=== PATIENT | female | born 1935 | race Caucasian/White ===

== ENCOUNTER → 2017-03-07 | Outpatient (CLI) | payer MEDICARE, BC | END | disposition home or self-care (01) | LOC: SUSANVILLE 11:00 | PROVIDERS: ATTEND Internal Medicine Cardiovascular Disease | DX: I08.3 Combined rheumatic disorders of mitral, aortic and tricuspid valves (principal); I51.7 Cardiomegaly; I37.1 Nonrheumatic pulmonary valve insufficiency | CPT/HCPCS: 93306 ==

== ENCOUNTER → 2017-03-17 | Outpatient (CLI) | payer MEDICARE, BC ==
[~2017-03-17] MED LIST: REGADENOSON 0.4 MG/5 ML SYRINGE ONE
== END | disposition home or self-care (01) ==
LOC: CFH 11:48
PROVIDERS: ATTEND Internal Medicine Cardiovascular Disease
DX: Z01.810 Encounter for preprocedural cardiovascular examination (principal); I10 Essential (primary) hypertension; I48.91 Unspecified atrial fibrillation
CPT/HCPCS: 78452; 93017; A9502; J2785

== ENCOUNTER → 2017-06-21 | Outpatient (CLI) | payer MEDICARE, BC | END | disposition home or self-care (01) | LOC: CFH 11:10 | PROVIDERS: ATTEND Nurse Practitioner Family | DX: I48.2 Chronic atrial fibrillation (principal); Z79.01 Long term (current) use of anticoagulants | CPT/HCPCS: 36415; 85610; 85730 ==

== ENCOUNTER 2017-07-13 08:54 | Day surgery (SDC) | payer MEDICARE, BC ==
[~2017-07-13] VITALS: Ht 152.4 cm; Wt 63.6 kg
[2017-07-13] MEDS ORDERED: SODIUM CHLORIDE 0.9% 1,000 ML IV SCH (09:28)
[2017-07-13] MEDS ORDERED: BISACODYL 5 MG EC TABLET PO PRN (09:30)
[2017-07-13] MEDS ORDERED: ACETAMINOPHEN 325 MG TABLET PO PRN (09:30)
[2017-07-13] MEDS ORDERED: ASPIRIN 325 MG TABLET EC PO ONE (09:30)
[2017-07-13] MEDS ORDERED: ONDANSETRON 2MG/ML, 2ML IVPush PRN (09:30)
[2017-07-13] MEDS ORDERED: ZOLPIDEM 5MG TABLET PO PRN (09:30)
[2017-07-13] MEDS ORDERED: BISACODYL 10 MG SUPP PR PRN (09:30)
[2017-07-13 09:31] VITALS: BP 163/75
[2017-07-13] MEDS ORDERED: TRAM50TA2 PO (09:32)
[2017-07-13] MEDS ORDERED: WARF4TAB7 PO (09:33)
[2017-07-13] MEDS ORDERED: HYDR25TA6 PO (09:34)
[2017-07-13] MEDS ORDERED: METO-95 PO (09:34)
[2017-07-13] MEDS ORDERED: ATOR40TA78 PO (09:34)
[2017-07-13] MEDS ORDERED: calcium (09:37)
[2017-07-13] MEDS ORDERED: MULT-717 PO (09:38)
[2017-07-13] MEDS ORDERED: ASCO100019 PO (09:38)
[2017-07-13] MEDS ORDERED: ACET325T14 PO (09:39)
[2017-07-13 09:42] LABS: HEMATOCRIT 36.8 % (34.6-47.8); HEMOGLOBIN 12.3 g/dL (11.7-16.4)
[2017-07-13] MEDS ORDERED: PLEASE ENTER HEIGHT AND WEIGHT MC SCH (10:00)
[2017-07-13] MEDS ORDERED: ASPIRIN 325 MG TABLET EC ONE (10:04)
[2017-07-13] MEDS ORDERED: FENTANYL PF 100 MCG/2ML ONE (11:39)
[2017-07-13] MEDS ORDERED: MIDAZOLAM 1 MG/ML, 5ML ONE (11:40)
[2017-07-13] MEDS ORDERED: LIDOCAINE 2%, 20ML ONE (11:40)
== END 2017-07-13 15:27 ==
LOC: CACL 08:54
PROVIDERS: ATTEND Internal Medicine Cardiovascular Disease
DX: I08.0 Rheumatic disorders of both mitral and aortic valves (principal); I25.10 Atherosclerotic heart disease of native coronary artery without angina pectoris; Z96.641 Presence of right artificial hip joint; I10 Essential (primary) hypertension; Z87.891 Personal history of nicotine dependence; I48.91 Unspecified atrial fibrillation; Z79.01 Long term (current) use of anticoagulants; E78.5 Hyperlipidemia, unspecified
CPT/HCPCS: 36415; 85025; 85610; 93454; 99156; C1760; C1894; J2250; J3010; J3490; Q9967

== ENCOUNTER 2019-08-29 08:25 | Outpatient (CLI) | payer MEDICARE, BC ==
[~2019-08-29 08:25] MED LIST changes: +ACET325T14 PO; +ASCO100019 PO; +ATOR40TA78 PO; +HYDR25TA6 PO; +METO-95 PO; +MULT-717 PO; -REGADENOSON 0.4 MG/5 ML SYRINGE ONE; +TRAM50TA2 PO; +WARF4TAB65 PO; +calcium
== END 2019-08-29 23:59 | disposition home or self-care (01) ==
LOC: CVU 08:25
PROVIDERS: ATTEND Internal Medicine Cardiovascular Disease
DX: I08.8 Other rheumatic multiple valve diseases (principal); I72.9 Aneurysm of unspecified site; I27.20 Pulmonary hypertension, unspecified; I77.89 Other specified disorders of arteries and arterioles; I48.20 Chronic atrial fibrillation, unspecified; Z79.01 Long term (current) use of anticoagulants; I11.9 Hypertensive heart disease without heart failure
CPT/HCPCS: 93306

== ENCOUNTER → 2021-02-12 | Outpatient (CLI) | payer MEDICARE, BC | END | disposition home or self-care (01) | LOC: CVU 09:32 | PROVIDERS: ATTEND Internal Medicine Cardiovascular Disease | DX: I08.8 Other rheumatic multiple valve diseases (principal) | CPT/HCPCS: 93306 ==

== ENCOUNTER → 2021-04-13 | Outpatient (CLI) | payer MEDICARE, BC ==
[~2021-04-13] MED LIST changes: +OMNIPAQUE 350 MG/ML, 75ML BOTTLE ONE
[2021-04-13 13:27] LABS: CREATININE 0.64 mg/dL (0.55-1.02)
== END | disposition home or self-care (01) ==
LOC: RAD 12:33
PROVIDERS: ATTEND Internal Medicine Cardiovascular Disease
DX: I27.29 Other secondary pulmonary hypertension (principal); I51.7 Cardiomegaly; I25.10 Atherosclerotic heart disease of native coronary artery without angina pectoris
CPT/HCPCS: 36415; 71275; 82565; Q9967

== ENCOUNTER 2021-04-22 12:46 | Observation (INO) | payer MEDICARE, BC ==
[~2021-04-22] VITALS: Ht 160 cm; Wt 63.0 kg
[~2021-04-22 12:46] MED LIST changes: -OMNIPAQUE 350 MG/ML, 75ML BOTTLE ONE
[2021-04-22 14:47] LABS: TROPONIN I 0.048 ng/mL (0.000-0.045)
[2021-04-22] MEDS ORDERED: ACETAMINOPHEN 325 MG TABLET PO PRN (15:30)
[2021-04-22] MEDS ORDERED: ONDANSETRON ODT 4 MG PO PRN (15:30)
[2021-04-22] MEDS ORDERED: BISACODYL 10 MG SUPP PR PRN (15:30)
[2021-04-22] MEDS ORDERED: PROMETHAZINE 25 MG/ML, 1ML IM PRN (15:30)
[2021-04-22] MEDS ORDERED: hydrALAzine 20 MG/ML, 1ML IVPush PRN (15:30)
[2021-04-22] MEDS ORDERED: DOCUSATE 100 MG CAPSULE PO PRN (15:30)
[2021-04-22] MEDS ORDERED: ONDANSETRON 2MG/ML, 2ML IVPush PRN (15:30)
[2021-04-22] MEDS ORDERED: POLYETHYLENE GLYCOL 17 GM PACKET PO PRN (15:30)
[2021-04-22 15:56] LABS: INTERNATIONAL NORMALIZED RATIO 1.36 (0.93-1.1); PROTHROMBIN TIME 14.5 Seconds (9.6-11.5)
[2021-04-22] MEDS ORDERED: CALC-525 PO (17:44)
[2021-04-22] MEDS ORDERED: DOXA4TAB3 PO (17:44)
[2021-04-22] MEDS ORDERED: LOSA100T14 PO (17:44)
[2021-04-22] MEDS ORDERED: HYDR-3342 PO (17:44)
[2021-04-22] MEDS ORDERED: WARFARIN 3 MG TABLET PO-COUM ONE (18:00)
[2021-04-22 18:19] VITALS: BP 169/77
[2021-04-22 19:12] VITALS: BP 179/82
[2021-04-22 20:33] LABS: MICROSCOPIC AUTO
[2021-04-22] MEDS ORDERED: ATORVASTATIN 40 MG TABLET PO SCH (21:00)
[2021-04-22] MEDS ORDERED: DOXAZOSIN 2MG TABLET PO SCH (21:00)
[2021-04-23 01:10] VITALS: BP 156/83
[2021-04-23 06:05] LABS: INTERNATIONAL NORMALIZED RATIO 1.42 (0.93-1.1); PROTHROMBIN TIME 15.1 Seconds (9.6-11.5)
[2021-04-23 06:07] LABS: CHLORIDE 106 mmol/L (98-107)
[2021-04-23 06:13] LABS: BASOPHILS % (AUTO) 1 % (0-1); EOSINOPHILS % (AUTO) 6 % (1-7); LYMPHOCYTES % (AUTO) 22 % (22-44); MEAN CORPUSCULAR HEMOGLOBIN 31.4 pg (27.0-34.8); MEAN PLATELET VOLUME 8.9 fL (7.4-10.4); MONOCYTES % (AUTO) 12 % (2-9); NEUTROPHILS % (AUTO) 59 % (42-75); PLATELET COUNT 153 x10^3/uL (130-400); RED BLOOD COUNT 3.98 x10^6/uL (3.82-5.3); RED CELL DISTRIBUTION WIDTH 15.4 % (9.6-15.2)
[2021-04-23 06:25] LABS: ALANINE AMINOTRANSFERASE 25 U/L (12-78); ALBUMIN 3.3 g/dL (3.4-5.0); ALKALINE PHOSPHATASE 203 U/L (45-117); ANION GAP 7 mmol/L (5-15); BILIRUBIN,TOTAL 1.5 mg/dL (0.2-1.0); CALCIUM 8.9 mg/dL (8.5-10.1); CHOL/HDL RATIO 1.9; CHOLESTEROL, TOTAL 110 mg/dL (140-239); CREATININE 0.63 mg/dL (0.55-1.02); HDL CHOL % 53 % (28-40); HDL CHOLESTEROL (DIRECT) 58 mg/dL (40-60); LDL CHOLESTEROL,CALCULATED 40 mg/dL (54-169); LDL/HDL RATIO 0.7 (0.5-3.0); TOTAL PROTEIN 6.9 g/dL (6.4-8.2); TRIGLYCERIDES 59 mg/dL (50-200); TROPONIN I 0.038 ng/mL (0.000-0.045); VLDL CHOLESTEROL 12 mg/dL (0-25)
[2021-04-23 07:48] VITALS: BP 175/84
[2021-04-23] MEDS ORDERED: MULTIVITAMINS/MINERALS TABLET PO SCH (09:00)
[2021-04-23] MEDS ORDERED: CALCIUM/VITAMIN D3 250-125 TABLET PO SCH (09:00)
[2021-04-23] MEDS ORDERED: LOSARTAN 100 MG TAB PO SCH (09:00)
[2021-04-23] MEDS ORDERED: METOPROLOL SUCCINATE 100 MG TAB.ER.24H PO SCH (09:00)
[2021-04-23] MEDS ORDERED: ASPI81TA45 PO (14:10)
[2021-04-23] MEDS ORDERED: MECL-101 PO (14:11)
[2021-04-23 14:29] VITALS: BP 149/69
[2021-04-23] MEDS ORDERED: ASPIRIN 81 MG TABLET EC PO SCH (14:30)
[2021-04-23] MEDS ORDERED: WARFARIN 7.5 MG TABLET PO-COUM ONE (18:00)
== END 2021-04-23 15:30 | disposition home or self-care (01) ==
LOC: ED 12:52 → EDIP 14:08 → INTOOBSV 14:08 → 5SO 15:09 → DCLOUNGE 04-23 13:05
PROVIDERS: ADMIT Hospitalist; ATTEND Hospitalist
DX: R55 Syncope and collapse (principal); S01.01XA Laceration without foreign body of scalp, initial encounter; I48.20 Chronic atrial fibrillation, unspecified; D68.69 Other thrombophilia; I10 Essential (primary) hypertension; E78.5 Hyperlipidemia, unspecified; E78.00 Pure hypercholesterolemia, unspecified; I65.22 Occlusion and stenosis of left carotid artery; I45.10 Unspecified right bundle-branch block; Z79.01 Long term (current) use of anticoagulants; Z96.649 Presence of unspecified artificial hip joint; Z95.2 Presence of prosthetic heart valve; W18.39XA Other fall on same level, initial encounter; Y93.89 Activity, other specified; Y92.89 Other specified places as the place of occurrence of the external cause
CPT/HCPCS: 36415; 70551; 80053; 80061; 81001; 83036; 83735; 84100; 84443; 84484; 85025; 85610; 87077; 87086; 87186; 93005; 93880; 97162; 99284; G0378

== ENCOUNTER 2021-07-02 10:02 | Day surgery (SDC) | payer MEDICARE, BC ==
[~2021-07-02] VITALS: Ht 160 cm; Wt 61.4 kg
[~2021-07-02 10:02] MED LIST changes: +ASPI81TA45 PO; +CALC-525 PO; +DOXA4TAB3 PO; +HYDR-3342 PO; +LOSA100T14 PO; +MECL-101 PO
[2021-07-02] MEDS ORDERED: SODIUM CHLORIDE 0.9% 1,000 ML IV SCH (10:30)
[2021-07-02] MEDS ORDERED: CHOL10003 PO (10:56)
[2021-07-02] MEDS ORDERED: ZINC220T2 PO (10:56)
[2021-07-02] MEDS ORDERED: MAGN400T36 PO (10:56)
[2021-07-02 10:58] VITALS: BP 196/86
[2021-07-02 11:37] LABS: BASOPHILS % (AUTO) 1 % (0-1); EOSINOPHILS % (AUTO) 5 % (1-7); LYMPHOCYTES % (AUTO) 26 % (22-44); MEAN CORPUSCULAR HEMOGLOBIN 31.6 pg (27.0-34.8); MEAN CORPUSCULAR HGB CONC 34.1 g/dL (32.4-35.8); MEAN PLATELET VOLUME 8.9 fL (7.4-10.4); MONOCYTES % (AUTO) 11 % (2-9); NEUTROPHILS % (AUTO) 58 % (42-75); PLATELET COUNT 137 x10^3/uL (130-400); RED BLOOD COUNT 3.92 x10^6/uL (3.82-5.3); RED CELL DISTRIBUTION WIDTH 15.7 % (9.6-15.2)
[2021-07-02 11:41] LABS: ANION GAP 9 mmol/L (5-15); CALCIUM 9.3 mg/dL (8.5-10.1); CHLORIDE 103 mmol/L (98-107); CREATININE 0.64 mg/dL (0.55-1.02)
[2021-07-02 11:52] LABS: INTERNATIONAL NORMALIZED RATIO 1.33 (0.93-1.1)
[2021-07-02] MEDS ORDERED: DIPHENHYDRAMINE 50 MG/ML, 1ML ONE (11:55)
[2021-07-02] MEDS ORDERED: FENTANYL PF 100 MCG/2ML ONE (12:12)
[2021-07-02] MEDS ORDERED: MIDAZOLAM 1 MG/ML, 5ML ONE (12:12)
[2021-07-02] MEDS ORDERED: VERAPAMIL 2.5 MG/ML, 2ML ONE (12:12)
[2021-07-02] MEDS ORDERED: LIDOCAINE 2%, 20ML ONE (12:13)
[2021-07-02] MEDS ORDERED: HEPARIN 1,000 UNITS/ML, 10ML ONE (12:13)
[2021-07-02] MEDS ORDERED: hydrALAzine 20 MG/ML, 1ML ONE (12:47)
== END 2021-07-02 14:49 | disposition home or self-care (01) ==
LOC: CACL 10:02
PROVIDERS: ATTEND Internal Medicine Cardiovascular Disease
DX: I48.91 Unspecified atrial fibrillation (principal); I27.20 Pulmonary hypertension, unspecified; I08.1 Rheumatic disorders of both mitral and tricuspid valves; I10 Essential (primary) hypertension; E78.00 Pure hypercholesterolemia, unspecified; E66.3 Overweight; Z68.23 Body mass index [BMI] 23.0-23.9, adult; Z79.01 Long term (current) use of anticoagulants; Z79.899 Other long term (current) drug therapy; Z87.891 Personal history of nicotine dependence; Z88.5 Allergy status to narcotic agent; Z88.8 Allergy status to other drugs, medicaments and biological substances
CPT/HCPCS: 36415; 80048; 85025; 85610; 93451; 99156; 99157; C1769; C1894; J0360; J1200; J2250; J3010; 82803; J1644